=== PATIENT | male | born 1930 | race Caucasian/White ===

== ENCOUNTER 2016-09-09 12:01 | Day surgery (SDC) | payer MEDICARE ==
--- NOTE | ~2016-09-09 | EGD ---
EGD REPORT [facility] [address] [address] NAME: BOAZ EDWARD : [birth year] STATUS : REG [facility]#: [id number] AGE: 86 ADM/REG DATE : 09/09/16 MR#: [id number] REPORT SERV DATE: 09/09/16 DICTATED BY: TERRY MUNIZ DATE: 09/09/16 REPORT STATUS : Draft TRANSCRIBED BY: [facility] DATE: 09/09/16 [facility] Center Patient Name: Boaz Edward Date of : 1930 Attending MD: TERRY MUNIZ MD Procedure Date No Time: 09/09/2016 Procedure: Flexible Sigmoidoscopy Indications: Pelvic pain, Constipation Referring MD: Carol SCHMIDT MD Medicines: Sedation Required Anesthesia Staff Assistance, Monitored Anesthesia Care Complications: No immediate complications. Procedure: Pre-Anesthesia Assessment: - ASA Grade Assessment: III - A patient with severe systemic disease. After obtaining informed consent, the endoscope was passed under direct vision. Throughout the procedure, the patient's blood pressure, pulse, and oxygen saturations were monitored continuously. The GIF [id number] was introduced through the anus and advanced to the sigmoid colon. The flexible sigmoidoscopy was accomplished without difficulty. The patient tolerated the procedure well. The quality of the bowel preparation was fair. Findings: The digital rectal exam was normal. Pertinent negatives include no palpable rectal lesions. Hemorrhoids were found during retroflexion and were moderate. A moderate amount of stool was found in the sigmoid colon, interfering with visualization. Impression: - Hemorrhoids. - Stool in the sigmoid colon. Recommendation: - Discharge patient to home. - Regular diet. - Miralax 17 g (1 capful) in 8 oz water PO BID. - Milk of Magnesia 1 tbsp or tab PO PRN indefinitely. Procedure Code(s): --- Professional --- 55401, Sigmoidoscopy, flexible; diagnostic, with or without collection of specimen(s) by brushing or washing (separate procedure) EGD REPORT [facility] [address] [place]. [address] NAME: BOAZ EDWARD : [birth year] STATUS : REG [facility]#: [id number] AGE: 86 ADM/REG DATE : 09/09/16 MR#: [id number] REPORT SERV DATE: 09/09/16 DICTATED BY: TERRY MUNIZ DATE: 09/09/16 REPORT STATUS : Draft TRANSCRIBED BY: [employer] DATE: 09/09/16 Diagnosis Code(s): --- Professional --- K64.9, Unspecified hemorrhoids R10.2, Pelvic and perineal pain K59.00, Constipation, unspecified CPT copyright 2013 [employer]. All rights reserved. The codes documented in this report are preliminary and upon remote coders review may be revised to meet current compliance requirements. TERRY MUNIZ MD 09/09/2016 2:59 PM This report has been signed electronically. Number of Addenda: 0 Note Initiated On: 09/09/2016 2:44 PM Scope Withdrawal Time 0 hours 0 minutes 0 seconds [address] [place] [address]
[~2016-09-09 12:01] MED LIST: ALLEGRA180 PO; ASA5GR PO; B1100 PO; CYANO1000T PO; HALF81 PO; I10 PO; LEVAQUIN5T PO; LIPITOR20 PO; MIRAPEX1 MG PO; MIRAPEX1.5 MG PO; MIRAPEX5 PO; NEUR300 PO; NEUR600 PO; PRILO PO; PROSCAR5 PO; SIN25 PO; VIAGRA50 MG PO; VITAMIN B-1500 MG PO; VITC500 PO; VITE PO; [UNRECOGNIZED DRUG - OTHER] PO
== END 2016-09-09 23:59 | disposition home or self-care (01) ==
LOC: DMU 12:01
PROVIDERS: Internal Medicine Gastroenterology
PROC: 0DJD8ZZ Inspection of Lower Intestinal Tract, Via Natural or Artificial Opening Endoscopic (ICD-10-PCS; principal; 2016-09-09 13:30)
DX: K64.9 Unspecified hemorrhoids (principal); R10.2 Pelvic and perineal pain; K59.00 Constipation, unspecified; G20 Parkinson's disease; G47.33 Obstructive sleep apnea (adult) (pediatric); Z88.8 Allergy status to other drugs, medicaments and biological substances; Z86.73 Personal history of transient ischemic attack (TIA), and cerebral infarction without residual deficits; Z90.89 Acquired absence of other organs; H91.90 Unspecified hearing loss, unspecified ear; Z96.1 Presence of intraocular lens; C34.31 Malignant neoplasm of lower lobe, right bronchus or lung; M19.90 Unspecified osteoarthritis, unspecified site; K21.9 Gastro-esophageal reflux disease without esophagitis; Z98.890 Other specified postprocedural states; K44.9 Diaphragmatic hernia without obstruction or gangrene; K58.9 Irritable bowel syndrome, unspecified; Z98.42 Cataract extraction status, left eye; Z98.41 Cataract extraction status, right eye